=== PATIENT | male | born 1985 ===

== ENCOUNTER 2021-05-01 16:47 | Inpatient (IN) | payer MEDICAID ==
[~2021-05-01] VITALS: Ht 182.9 cm; Wt 118.2 kg
[2021-05-01] MEDS ORDERED: INSU100V37 SC (17:06)
[2021-05-01] MEDS ORDERED: FLUT1AER INH (17:06)
[2021-05-01] MEDS ORDERED: PROP40TA PO (17:06)
[2021-05-01] MEDS ORDERED: SENN-190 PO (17:06)
[2021-05-01] MEDS ORDERED: GABA-827 PO (17:06)
[2021-05-01] MEDS ORDERED: INSU100I13 SC (17:06)
[2021-05-01] MEDS ORDERED: LEVE100020 PO (17:06)
[2021-05-01] MEDS ORDERED: OXYC5CAP2 PO (17:06)
[2021-05-01] MEDS ORDERED: CYCL10TA2 PO (17:06)
[2021-05-01] MEDS ORDERED: IPRA4AER INH (17:06)
[2021-05-01] MEDS ORDERED: CLON1TAB11 PO (17:06)
[2021-05-01] MEDS ORDERED: NALT380S SC (17:06)
[2021-05-01] MEDS ORDERED: METF500T17 PO (17:06)
[2021-05-01] MEDS ORDERED: EMPA10TA PO (17:06)
[2021-05-01] MEDS ORDERED: OMEP20TA62 PO (17:06)
[2021-05-01] MEDS ORDERED: QUET100T4 PO (17:06)
[2021-05-01] MEDS ORDERED: LORA-446 PO (17:06)
[2021-05-01] MEDS ORDERED: AMLO-211 PO (17:06)
[2021-05-01] MEDS ORDERED: PREG75CA PO (17:06)
[2021-05-01] MEDS ORDERED: SODIUM CHLORIDE FLUSH 10ML SYR IVF ONE (17:30)
[2021-05-01] MEDS ORDERED: SODIUM CHLORIDE 0.9% 1,000 ML IV ONE (17:30)
[2021-05-01] MEDS ORDERED: MORPHINE SULFATE 4 MG/ML, 1ML ONE ×2 (17:38→19:34)
[2021-05-01] MEDS: MORPHINE SULFATE 4 MG/ML, 1ML IVPush PRN ×2 (17:44→19:56)
--- NOTE | 2021-05-01 17:45 | NUR ---
TBADM. CAN DRINK PER MD, MEDS PER DEC, VSS.
--- NOTE | 2021-05-01 18:05 | NUR ---
AWAITING ADMIT, GIVEN URINAL, NAD.
--- NOTE | 2021-05-01 19:00 | NUR ---
RECEIVED REPORT FROM JOE CHANEY. PT UPRIGHT ON GURMIKIE AWAKE & CALM, [facility] AT , PT RESPONDS APPROP TO STAFF, CALL LIGHT WITHIN REACH.
[2021-05-01] MEDS ORDERED: IBUPROFEN 600 MG TABLET PO PRN (19:30)
[2021-05-01] MEDS ORDERED: ENALAPRILAT 1.25 MG/ML, 2ML IVPush PRN (19:30)
[2021-05-01] MEDS ORDERED: FOLIC ACID 1 MG TABLET PO ONE (19:30)
[2021-05-01] MEDS ORDERED: LORazepam 2 MG/ML, 1ML IV PRN ×4 (19:30)
[2021-05-01] MEDS ORDERED: DOCUSATE 100 MG CAPSULE PO PRN (19:30)
[2021-05-01] MEDS ORDERED: LORazepam 1MG TABLET PO PRN ×3 (19:30)
[2021-05-01] MEDS ORDERED: THIAMINE 200 MG in DEXTROSE 5% 50 ML IVPB ONE (19:30)
[2021-05-01] MEDS ORDERED: ONDANSETRON 2MG/ML, 2ML IVPush PRN (19:30)
[2021-05-01] MEDS ORDERED: CYCLOBENZAPRINE 10 MG TABLET PO PRN (19:30)
[2021-05-01] MEDS ORDERED: LORazepam 0.5MG TABLET PO PRN (19:30)
[2021-05-01] MEDS ORDERED: ENOXAPARIN 40 MG/0.4 ML ONE (19:33)
[2021-05-01] MEDS ORDERED: LORazepam 2 MG/ML, 1ML ONE ×2 (19:34→20:09)
[2021-05-01] MEDS: MVI ADULT IV SCH (19:55)
[2021-05-01] MEDS: POTASSIUM CHLORIDE IV SCH (19:55)
[2021-05-01] MEDS: MAGNESIUM SULFATE IV SCH (19:55)
[2021-05-01] MEDS: [UNRECOGNIZED DRUG - OTHER] IV SCH (19:55)
[2021-05-01] MEDS: FOLIC ACID IV SCH (19:55)
[2021-05-01] MEDS: ENOXAPARIN 40 MG/0.4 ML SQ SCH (19:57)
[2021-05-01 20:01] LABS: ALANINE AMINOTRANSFERASE 92 U/L (12-78); BILIRUBIN, DIRECT 0.4 mg/dL (0.1-0.2)
[2021-05-01 20:05] LABS: ALKALINE PHOSPHATASE 109 U/L (45-117); BILIRUBIN,INDIRECT 0.9 mg/dL (0.0-2.0); BILIRUBIN,TOTAL 1.3 mg/dL (0.2-1.0); TOTAL PROTEIN 7.3 g/dL (6.4-8.2); TROPONIN I < 0.015 ng/mL (0.000-0.045)
--- NOTE | 2021-05-01 20:16 | NUR ---
Pt to be admitted to [facility], room 521-2. Report called to [facility]YE.
[2021-05-01 20:30] VITALS: BP 142/89
[2021-05-01] MEDS ORDERED: PROPRANOLOL 40 MG TABLET PO SCH (21:00)
[2021-05-01] MEDS: INSULIN REGULAR 100 UNITS/ML, 3ML VIAL SQ-INSULIN SCH (21:00)
[2021-05-01] MEDS ORDERED: PROPRANOLOL 10 MG TABLET ONE (21:21)
[2021-05-01] MEDS: PROPRANOLOL 20 MG TABLET PO SCH (21:43)
[2021-05-01] MEDS: LEVETIRACETAM 500 MG TABLET PO SCH (21:43)
[2021-05-01] MEDS: metFORMIN 500 MG TABLET PO SCH (21:44)
[2021-05-01] MEDS: INSULIN GLARGINE 100 UNITS/ML, PEN SQ-INSULIN SCH (21:45)
[2021-05-01] MEDS: OXYcodone IR 5MG TABLET PO PRN (22:34)
[2021-05-01] MEDS: morphine SULFATE 10 MG/ML, 1ML IVPush PRN (22:49)
[2021-05-02] MEDS: LORazepam 2 MG/ML, 1ML IV PRN ×2 (00:24→04:22)
[2021-05-02 01:36] LABS: TROPONIN I < 0.015 ng/mL (0.000-0.045)
[2021-05-02] MEDS: morphine SULFATE 10 MG/ML, 1ML IVPush PRN ×5 (01:41→20:49)
[2021-05-02 02:00] VITALS: BP 145/76
[2021-05-02 04:35] LABS: BASOPHILS % (AUTO) 1 % (0-1); EOSINOPHILS % (AUTO) 1 % (1-7); LYMPHOCYTES % (AUTO) 34 % (22-44); MEAN CORPUSCULAR HEMOGLOBIN 28.1 pg (27.5-34.5); MEAN CORPUSCULAR HGB CONC 33.8 g/dL (33.2-36.2); MEAN PLATELET VOLUME 7.9 fL (7.4-10.4); MONOCYTES % (AUTO) 8 % (2-9); NEUTROPHILS % (AUTO) 55 % (42-75); PLATELET COUNT 109 x10^3/uL (130-400); RED BLOOD COUNT 4.66 x10^6/uL (4.38-5.82); RED CELL DISTRIBUTION WIDTH 15.5 % (9.4-14.8)
[2021-05-02 04:45] LABS: ANION GAP 6 mmol/L (5-15); CALCIUM 7.4 mg/dL (8.5-10.1); CHLORIDE 107 mmol/L (98-107); CREATININE 0.63 mg/dL (0.7-1.3)
[2021-05-02] MEDS: INSULIN REGULAR 100 UNITS/ML, 3ML VIAL SQ-INSULIN SCH ×4 (07:00→20:44)
[2021-05-02] MEDS: [UNRECOGNIZED DRUG - OTHER] IV SCH (07:07)
[2021-05-02] MEDS: FOLIC ACID IV SCH (07:07)
[2021-05-02] MEDS: MAGNESIUM SULFATE IV SCH (07:07)
[2021-05-02] MEDS: POTASSIUM CHLORIDE IV SCH (07:07)
[2021-05-02] MEDS: MVI ADULT IV SCH (07:07)
[2021-05-02 07:59] VITALS: BP 151/103
[2021-05-02] MEDS: OMEPRAZOLE 20 MG CAPSULE.DR PO SCH (08:32)
[2021-05-02] MEDS: LEVETIRACETAM 500 MG TABLET PO SCH ×2 (08:32→20:44)
[2021-05-02] MEDS: PROPRANOLOL 20 MG TABLET PO SCH ×2 (08:32→20:44)
[2021-05-02] MEDS: PREGABALIN 75 MG CAPSULE PO SCH (08:32)
[2021-05-02] MEDS: AMLODIPINE 10 MG TAB PO SCH (08:32)
[2021-05-02] MEDS: (Empagliflozin (Jardiance) 10 MG) HOMEMEDPO SCH (08:33)
[2021-05-02] MEDS: OXYcodone IR 5MG TABLET PO PRN ×4 (08:33→22:12)
[2021-05-02] MEDS ORDERED: POTASSIUM CHLORIDE IV SCH (09:00)
[2021-05-02] MEDS ORDERED: [UNRECOGNIZED DRUG - OTHER] IV SCH (09:00)
[2021-05-02] MEDS: metFORMIN 500 MG TABLET PO SCH ×2 (09:00→20:44)
[2021-05-02] MEDS: LORazepam 1MG TABLET PO PRN ×3 (12:39→22:13)
[2021-05-02 13:55] VITALS: BP 149/103
[2021-05-02] MEDS: LIDODERM 5% PATCH TD SCH ×2 (15:13→23:29)
[2021-05-02 19:39] VITALS: BP 151/101
[2021-05-02] MEDS: ENOXAPARIN 40 MG/0.4 ML SQ SCH (19:50)
[2021-05-02] MEDS: INSULIN GLARGINE 100 UNITS/ML, PEN SQ-INSULIN SCH (20:50)
[2021-05-03] MEDS: morphine SULFATE 10 MG/ML, 1ML IVPush PRN ×2 (01:06→05:41)
[2021-05-03] MEDS: LORazepam 1MG TABLET PO PRN ×2 (01:27→08:48)
[2021-05-03 02:22] VITALS: BP 127/79
[2021-05-03 05:58] LABS: BASOPHILS % (AUTO) 1 % (0-1); EOSINOPHILS % (AUTO) 3 % (1-7); LYMPHOCYTES % (AUTO) 34 % (22-44); MEAN CORPUSCULAR HEMOGLOBIN 28.1 pg (27.5-34.5); MEAN CORPUSCULAR HGB CONC 33.2 g/dL (33.2-36.2); MEAN PLATELET VOLUME 7.7 fL (7.4-10.4); MONOCYTES % (AUTO) 8 % (2-9); NEUTROPHILS % (AUTO) 54 % (42-75); PLATELET COUNT 112 x10^3/uL (130-400); RED BLOOD COUNT 5.12 x10^6/uL (4.38-5.82); RED CELL DISTRIBUTION WIDTH 15.3 % (9.4-14.8)
[2021-05-03 06:09] LABS: CHLORIDE 105 mmol/L (98-107)
[2021-05-03 06:16] LABS: ALANINE AMINOTRANSFERASE 76 U/L (12-78); ALBUMIN 3.8 g/dL (3.4-5.0); ALKALINE PHOSPHATASE 112 U/L (45-117); ANION GAP 7 mmol/L (5-15); BILIRUBIN,TOTAL 1.5 mg/dL (0.2-1.0); CALCIUM 8.3 mg/dL (8.5-10.1); CREATININE 0.67 mg/dL (0.7-1.3); TOTAL PROTEIN 7.3 g/dL (6.4-8.2)
[2021-05-03] MEDS: INSULIN REGULAR 100 UNITS/ML, 3ML VIAL SQ-INSULIN SCH ×2 (07:00→11:00)
[2021-05-03 08:16] VITALS: BP 154/93
[2021-05-03] MEDS: OXYcodone IR 5MG TABLET PO PRN (08:27)
[2021-05-03] MEDS: PROPRANOLOL 20 MG TABLET PO SCH (08:28)
[2021-05-03] MEDS: PREGABALIN 75 MG CAPSULE PO SCH (08:28)
[2021-05-03] MEDS: LEVETIRACETAM 500 MG TABLET PO SCH (08:28)
[2021-05-03] MEDS: OMEPRAZOLE 20 MG CAPSULE.DR PO SCH (08:28)
[2021-05-03] MEDS: metFORMIN 500 MG TABLET PO SCH (08:28)
[2021-05-03] MEDS: AMLODIPINE 10 MG TAB PO SCH (08:28)
[2021-05-03] MEDS: (Empagliflozin (Jardiance) 10 MG) HOMEMEDPO SCH (08:42)
[2021-05-03] MEDS ORDERED: LORA-446 PO (11:34)
[2021-05-03] MEDS ORDERED: OXYC5TAB98 PO ×2 (11:34)
[2021-05-03] MEDS ORDERED: PREG75CA PO (11:34)
[2021-05-03] MEDS ORDERED: CLON1TAB11 PO (11:34)
[2021-05-03] MEDS ORDERED: CYCL10TA2 PO (11:56)
[2021-05-03] MEDS ORDERED: AMLO-211 PO (11:56)
[2021-05-03] MEDS ORDERED: INSU100V37 SC (11:56)
[2021-05-03] MEDS ORDERED: PROP40TA PO (11:56)
[2021-05-03] MEDS ORDERED: INSU100I13 SC (11:56)
[2021-05-03] MEDS ORDERED: FLUT1AER INH (11:56)
[2021-05-03] MEDS ORDERED: OMEP20TA62 PO (11:56)
[2021-05-03] MEDS ORDERED: GABA-827 PO (11:56)
[2021-05-03] MEDS ORDERED: METF500T17 PO (11:56)
[2021-05-03] MEDS ORDERED: QUET100T4 PO (11:56)
[2021-05-03] MEDS ORDERED: EMPA10TA PO (11:56)
[2021-05-03] MEDS ORDERED: LEVE100020 PO (11:56)
== END 2021-05-03 12:51 | disposition home or self-care (01) | DRG 282 ==
LOC: ED 17:49 → EDIP 18:01 → 5SO 20:22 → DCLOUNGE 05-03 12:43
PROVIDERS: ADMIT Internal Medicine; ATTEND Internal Medicine
DX: K85.20 Alcohol induced acute pancreatitis without necrosis or infection (principal); S12.100A Unspecified displaced fracture of second cervical vertebra, initial encounter for closed fracture; E11.9 Type 2 diabetes mellitus without complications; E87.6 Hypokalemia; F10.20 Alcohol dependence, uncomplicated; F12.90 Cannabis use, unspecified, uncomplicated; G89.29 Other chronic pain; R74.8 Abnormal levels of other serum enzymes; G40.909 Epilepsy, unspecified, not intractable, without status epilepticus; I10 Essential (primary) hypertension; K86.0 Alcohol-induced chronic pancreatitis; K86.3 Pseudocyst of pancreas; Z79.4 Long term (current) use of insulin; Z82.49 Family history of ischemic heart disease and other diseases of the circulatory system; Z83.3 Family history of diabetes mellitus; Z91.19 Patient's noncompliance with other medical treatment and regimen; Z79.899 Other long term (current) drug therapy; Y90.9 Presence of alcohol in blood, level not specified
CPT/HCPCS: 36415; 96365; 96375; 99285; J7042; J7121; 72141; 80048; 80053; 80076; 82962; 83690; 83735; 84100; 84484; 85025; G0378; J1650; J1815; J3411; J3475; J3480; J2060; J2270; J7030